=== PATIENT | male | born 1955 | race Caucasian/White ===

== ENCOUNTER 2020-09-11 12:22 | Emergency (ER) | payer OTHER ==
--- NOTE | 2020-09-11 12:47 | ED Physician Documentation ---
PD HPI UPPER EXT INJURY - Stated complaint Stated Complaint: RIGHT SHOULDER INJURY - Chief complaint Chief Complaint: Trauma Ext - History obtained from History obtained from: Patient - Additonal information Additional information: He slipped and fell at home last night around 8 PM onto the right side. His glasses abraded him near the right eye but he landed directly on the right shoulder which is still painful. He denies loss of consciousness or headache. He is not anticoagulated. He is unable to move the right arm really at the shoulder but it is a little better today than it was last night. Review of Systems Constitutional: denies: Fever, Chills Cardiac: reports: Reviewed and negative Respiratory: reports: Reviewed and negative PD PAST MEDICAL HISTORY - Past Medical History Past Medical History: Yes Cardiovascular: Hypertension Respiratory: None Neuro: None Endocrine/Autoimmune: None GI: None : None HEENT: Chronic vision loss Psych: None Musculoskeletal: None Derm: None - Past Surgical History Past Surgical History: No - Present Medications Home Medications: Ambulatory Orders Medication Instructions Recorded Confirmed HYDROcod/ACETAM 5/325 [[place] 5/325] 1 - 2 tab PO Q6H PRN #15 tablet 09/11/20 - Allergies Allergies/Adverse Reactions: Allergies Allergy/AdvReac Type Severity Reaction Status Date / Time No Known Drug Allergies Allergy Verified 09/11/20 12:32 - Social History Does the pt smoke?: No Smoking Status: Never smoker Does the pt drink ETOH?: No Does the pt have substance abuse?: No - Immunizations Immunizations are current?: Yes - POLST Patient has POLST: No PD ED PE NORMAL - Vitals Vital signs reviewed: Yes - General General: Alert and oriented X 3, No acute distress - HEENT HEENT: PERRL, EOMI, Other (Some abrasion in the periorbital area on the right, no bony facial tenderness or evidence of entrapment.) - Neck Neck: No bony TTP - Extremities Extremities: Other (Tender to the upper right humerus, no obvious deformity. No distal neurovascular compromise.) - Neuro Neuro: Alert and oriented X 3, Normal speech Results - Vitals Vitals: Vital Signs - 24 hr 09/11/20 09/11/20 12:26 13:35 Temperature 36.6 C 37.2 C Heart Rate 89 82 Respiratory 20 15 Rate Blood Pressure 139/77 H 133/76 H O2 Saturation 99 98 Oxygen O2 Source Room air PD MEDICAL DECISION MAKING - ED course ED course: 65-year-old gentleman presents after a fall last night, no evidence of significant head injury and he is not anticoagulated. He does have a comminuted and mildly displaced fracture of the humeral head and neck. Placed in a sling. He requested some prescription pain medication mostly for nighttime use. Counseled on the need for orthopedic follow-up. Departure - Departure Disposition: 01 Home, Self Care Clinical Impression: Fracture of neck of right humerus Qualifiers: Encounter type: initial encounter Fracture type: closed Qualified Code(s): S42.211A - Unspecified displaced fracture of surgical neck of right humerus, initial encounter for closed fracture Condition: Good Record reviewed to determine appropriate education?: Yes Instructions: Frank Fx Follow-Up: [facility] [Provider Group] - Within 1 week Prescriptions: HYDROcod/ACETAM 5/325 [[place] 5/325] 1 - 2 tab PO Q6H PRN #15 tablet PRN Reason: Pain Comments: Call your doctor for a formal referral to an orthopedist. Keep the sling on for the most part but you can take it off to change clothing and shower. Do not drink or drive while taking narcotic pain medication. Note that many narcotic pain relievers also contain Tylenol/acetaminophen. Please ensure that your total dose of acetaminophen from all sources does not exceed 3 g (3000 mg) per day. You may get constipated while on this medication. Take a stool softener such as Colace twice a day while you are on it. Also add an [id number] laxative such as senna or MiraLAX on any day that you do not have a bowel movement. If you received a narcotic pain medication or sedative while in the emergency department, do not drive for the next 24 hours. NOTE TO HIM: Please copy chart records to Pratik Lin MD (Mark) [address], [address] Fax number: . Discharge Date/Time: 09/11/20 13:39
--- NOTE | 2020-09-11 13:28 | XRAY Report ---
PROCEDURE: Humerus RT INDICATIONS: humerus inj TECHNIQUE: AP and lateral views of the humerus were acquired. COMPARISON: None FINDINGS: Bones: Comminuted, mildly displaced fracture of the humeral head and neck. No other fractures or disl ocations. No suspicious bony lesions. Soft tissues: No suspicious soft tissue calcifications. IMPRESSION: Comminuted, mildly displaced fracture of the humeral head and neck. Reviewed by: Brent Samano MD on 09/11/2020 12:27 PM [facility] Approved by: Brent Samano MD on 09/11/2020 12:27 PM [facility] Station ID: [id number]
[2020-09-11 13:37] VITALS: BP 133/76
== END 2020-09-11 13:39 | disposition home or self-care (01) ==
LOC: ED 12:22
DX: S42.211A Unspecified displaced fracture of surgical neck of right humerus, initial encounter for closed fracture (principal); S00.211A Abrasion of right eyelid and periocular area, initial encounter; W01.0XXA Fall on same level from slipping, tripping and stumbling without subsequent striking against object, initial encounter; Y92.009 Unspecified place in unspecified non-institutional (private) residence as the place of occurrence of the external cause; I10 Essential (primary) hypertension
CPT/HCPCS: 99283

== ENCOUNTER 2020-09-15 07:00 | Outpatient (CLI) | payer OTHER ==
--- NOTE | 2020-09-15 11:44 | XRAY Report ---
PROCEDURE: Shoulder 3 View RT INDICATIONS: RT SHOULDER PAIN TECHNIQUE: 4 views of the shoulder were acquired. COMPARISON: None. FINDINGS: Bones: There is a moderately displaced fracture of the humeral head and neck, which appears comminute d.. No suspicious bony lesions. Visualized ribs appear intact. Soft tissues: No suspicious soft tissue calcifications. IMPRESSION: Comminuted humeral head/neck fracture. Reviewed by: Lenny Regalado MD on 09/15/2020 11:43 AM PST Approved by: Lenny Regalado MD on 09/15/2020 11:43 AM PST Station ID: [id number]
== END 2020-09-15 23:59 | disposition home or self-care (01) ==
LOC: DI.N 07:00
PROVIDERS: ATTEND Orthopaedic Surgery
DX: M25.511 Pain in right shoulder (principal); S42.291A Other displaced fracture of upper end of right humerus, initial encounter for closed fracture

== ENCOUNTER 2020-10-06 08:20 | Outpatient (CLI) | payer OTHER ==
--- NOTE | 2020-10-06 13:41 | XRAY Report ---
PROCEDURE: Shoulder 3 View RT INDICATIONS: RT SHOULDER FRACTURE TECHNIQUE: 4 views of the shoulder were acquired. COMPARISON: 09/15/2020 and 09/11/2020. FINDINGS: Bones: Stable alignment of mildly displaced, comminuted fracture of the right humeral head and neck. There are reactive changes compatible with progress towards fracture healing. Alignment is stable. Re mainder of the visualized osseous structures appear intact. No suspicious bony lesions. Visualized r ibs appear intact. Soft tissues: No suspicious soft tissue calcifications. IMPRESSION: Healing comminuted right humeral head/neck fracture in stable alignment. Reviewed by: Florentin Contreras MD on 10/06/2020 1:39 PM PDT Approved by: Florentin Contreras MD on 10/06/2020 1:39 PM PDT Station ID: [id number]
== END 2020-10-06 23:59 | disposition home or self-care (01) ==
LOC: DI.N 08:20
PROVIDERS: ATTEND Orthopaedic Surgery
DX: S42.224A 2-part nondisplaced fracture of surgical neck of right humerus, initial encounter for closed fracture (principal)

== ENCOUNTER 2020-10-28 08:00 | Outpatient (CLI) | payer OTHER ==
--- NOTE | 2020-10-28 14:17 | XRAY Report ---
PROCEDURE: Shoulder 3 View RT INDICATIONS: 2 PART NONDISPLACED RT HUMERUS Fx TECHNIQUE: 3 views of the shoulder were acquired. COMPARISON: X-ray shoulder 10/07/2019 FINDINGS: Bones: Comminuted fracture of the humeral head and neck with extension to the greater tuberosity. The re is no dislocation at the glenohumeral joint space. Overall alignment is relatively stable. No susp icious bony lesions. Visualized ribs appear intact. Soft tissues: No suspicious soft tissue calcifications. IMPRESSION: Stable appearance of comminuted head and neck fracture with minimal to no bridging callu s formation. Reviewed by: Shelbie Newton MD on 10/28/2020 2:16 PM PDT Approved by: Shelbie Newton MD on 10/28/2020 2:16 PM PDT Station ID: [id number]
== END 2020-10-28 23:59 | disposition home or self-care (01) ==
LOC: DI.N 08:00
PROVIDERS: ATTEND Orthopaedic Surgery
DX: S42.211D Unspecified displaced fracture of surgical neck of right humerus, subsequent encounter for fracture with routine healing (principal)